=== PATIENT | male | born 1980 | race Caucasian/White ===

== ENCOUNTER 2021-12-19 15:57 | Inpatient (IN) | payer MEDICAID, OTHER ==
[2021-12-19] MEDS ORDERED: DIPH,PERTUS(ACELL)TETVAC-LF 0.5 ML VIAL IM ONE (17:01)
[2021-12-19] MEDS ORDERED: BACITRACIN OINT 1 EACH PACKET TOPICAL ONE (17:01)
--- NOTE | 2021-12-19 17:07 | ED ---
Psych HPI - General Chief Complaint: Psychiatric Symptoms Stated Complaint: suicidal thoughts Time Seen by Provider: 12/19/21 16:39 Source: patient, family (mom), RN notes reviewed, old records reviewed Mode of arrival: ambulatory - History of Present Illness Initial Comments: 41-year-old male, alert and oriented 4, presents to the emergency room with his mother with complaints of increased suicidal ideations, manic episodes and depression. Patient has a history of same and is on medications however he states that his stress at work and having no friends has increased his depression and he has been thinking about overdosing on his medications. Patient states he was last hospitalized for psychiatric illness in 2007. States that his primary care doctor has been managing his antidepressants. He currently lives with his mother. He did punch a wall today, sustaining multiple abrasions to his right hand. He has full range of motion and denies any pain at this time. MD Complaint: suicidal ideation, feels depressed -: year(s) Associated Psychiatric Symptoms: depression, suicidal ideation, racing thoughts History of same: Yes Quality: getting worse Improves With: none Worsens With: none Context: significant life stressor (work stress, no friends) Treatments Prior to Arrival: none If Self Harm: admits thoughts of self harm - Related Data Home Medications Medication Instructions Recorded Confirmed Ferrous Sulfate [Feosol] 325 mg PO DAILY 12/19/21 12/19/21 Glucosamine HCl/Chondroitin Frazier 1 cap PO DAILY 12/19/21 12/19/21 [Glucosamine-Chondroitin Cap] SUMAtriptan succinate [Imitrex] 100 mg PO BID PRN 12/19/21 12/19/21 Ubrogepant [Ubrelvy] 100 mg PO DAILY PRN 12/19/21 12/19/21 Venlafaxine HCl ER [Effexor Xr] 150 mg PO DAILY 12/19/21 12/19/21 Allergies Allergy/AdvReac Type Severity Reaction Status Date / Time No Known Allergies Allergy Verified 12/19/21 18:04 Review of Systems ROS Statement: Those systems with pertinent positive or pertinent negative responses have been documented in the HPI. ROS Other: All systems not noted in ROS Statement are negative. Past Medical History Past Medical History: Asthma Additional Past Medical History / Comment(s): migraine History of Any Multi-Drug Resistant Organisms: None Reported Past Surgical History: Orthopedic Surgery Past Psychological History: Anxiety, Bipolar, Depression, Panic Disorder Smoking Status: Former smoker Past Alcohol Use History: None Reported Past Drug Use History: Marijuana General Exam Limitations: no limitations General appearance: alert, in no apparent distress Head exam: Present: atraumatic, normocephalic, other (scar mid forehead from old injury) Eye exam: Present: normal appearance. Absent: scleral icterus, conjunctival injection, periorbital swelling, periorbital tenderness ENT exam: Present: normal exam, normal oropharynx, mucous membranes moist Neck exam: Present: normal inspection, full ROM. Absent: tenderness, meningismus, lymphadenopathy, thyromegaly Respiratory exam: Present: normal lung sounds bilaterally. Absent: respiratory distress, wheezes, rales, rhonchi, stridor, chest wall tenderness, accessory muscle use Cardiovascular Exam: Present: tachycardia GI/Abdominal exam: Present: soft. Absent: distended, tenderness, guarding, rebound, rigid Extremities exam: Present: normal capillary refill. Absent: pedal edema Right Hand Wrist exam: Present: full ROM, abrasion (Knuckles of right hand). Absent: tenderness, swelling, ecchymosis, deformity Neuro motor exam: Present: wrist extension intact Neurosensory exam: Present: radial nerve intact, ulnar nerve intact, median nerve intact Vascular: Present: normal capillary refill. Absent: vascular compromise Back exam: Present: normal inspection. Absent: tenderness, CVA tenderness (R), CVA tenderness (L) Neurological exam: Present: alert, oriented X3 Psychiatric exam: Present: depressed, suicidal ideation. Absent: agitated, flat affect Skin exam: Present: warm, dry. Absent: cyanosis, diaphoretic, petechiae, pallor Course Vital Signs 12/19/21 12/19/21 12/19/21 16:11 17:48 18:09 Temperature 98.4 F Pulse Rate 124 H 106 H 97 Respiratory 20 18 Rate Blood Pressure 122/87 O2 Sat by Pulse 100 99 Oximetry Medical Decision Making - Medical Decision Making Patient presents with suicidal ideations with a plan to overdose on his medications. He does admit to smoking marijuana and taking Kratom. Denies any other drug use or alcohol use. BAT negative. Urine drug screen positive for marijuana. He did punch a wall today out of anger. X-ray of the hand is negative. Abrasions were dressed with bacitracin dressings. Patient did speak with EPS nurse Roselia and is agreeable to being admitted for psychiatric care. - Lab Data Lab Results 12/19/21 Range/Units 17:46 Urine Opiates Screen Not Detected (NotDetected) Ur Oxycodone Screen Not Detected (NotDetected) Urine Methadone Screen Not Detected (NotDetected) Ur Propoxyphene Screen Not Detected (NotDetected) Ur Barbiturates Screen Not Detected (NotDetected) U Tricyclic Antidepress Not Detected (NotDetected) Ur Phencyclidine Scrn Not Detected (NotDetected) Ur Amphetamines Screen Not Detected (NotDetected) U Methamphetamines Scrn Not Detected (NotDetected) U Benzodiazepines Scrn Not Detected (NotDetected) Urine Cocaine Screen Not Detected (NotDetected) U Marijuana (THC) Screen Detected H (NotDetected) Disposition Clinical Impression: Depression, Suicidal ideation Disposition: ADMITTED IP TO THIS [facility] Referrals: Mikhail Jefferson DO [Primary Care Provider] - 1-2 days Decision Date: 12/19/21 Decision Time: 22:00
--- NOTE | 2021-12-19 17:41 | XR ---
EXAMINATION TYPE: XR hand complete RT DATE OF EXAM: 12/19/2021 COMPARISON: NONE HISTORY: Punched a wall. Pain TECHNIQUE: 3 views FINDINGS: The metacarpals are intact. Fingers are intact. There is soft tissue swelling on the dorsum of the hand. Carpal bones are intact. No fracture seen. IMPRESSION: Soft tissue swelling. No fracture seen.
[2021-12-19 18:03] LABS: Amphetamine Screen,Urine Not Detected (NotDetected); Barbiturate Screen,Urine Not Detected (NotDetected); Benzodiazepines Screen,Urine Not Detected (NotDetected); Cocaine Screen,Urine Not Detected (NotDetected); Methadone Screen, Urine Not Detected (NotDetected); Opiate Screen,Urine Not Detected (NotDetected); Oxycodone Screen, Urine Not Detected (NotDetected); Phencyclidine Screen,Urine Not Detected (NotDetected); Tricyclic Antidepressant,Urine Not Detected (NotDetected); Urn Cannabinoid Scrn Detected (NotDetected)
[2021-12-19 23:43] LABS: Basophils # (A) 0.1 k/uL (0-0.2); Basophils % (A) 1 %; Eosinophils # (A) 0.4 k/uL (0-0.7); Eosinophils % (A) 4 %; HCT 47.5 % (39.0-53.0); Lymphocytes # (A) 2.6 k/uL (1.0-4.8); Lymphocytes % (A) 27 %; MCH 30.6 pg (25.0-35.0); MCHC 33.8 g/dL (31.0-37.0); MCV 90.5 fL (80.0-100.0); Mean Platelet Volume 7.6; Monocytes # (A) 0.6 k/uL (0-1.0); Monocytes % (A) 6 %; Neutrophils % (A) 61 %; Platelet Count 272 k/uL (150-450); RBC 5.25 m/uL (4.30-5.90); RDW 12.2 % (11.5-15.5); WBC 9.8 k/uL (3.8-10.6)
[2021-12-19 23:58] LABS: ALT 44 U/L (4-49); AST 39 U/L (17-59); African American GFR (CKD) >90 (>60 ml/min/1.73 sqM); Albumin 4.9 g/dL (3.5-5.0); Alkaline Phosphatase 87 U/L (38-126); Anion Gap 16 mmol/L; Blood Urea Nitrogen 16 mg/dL (9-20); Calcium 9.8 mg/dL (8.4-10.2); Carbon Dioxide 20 mmol/L (22-30); Chloride 103 mmol/L (98-107); Glucose 92 mg/dL (74-99); Non-African American GFR(CKD) >90 (>60 ml/min/1.73 sqM); Sodium 139 mmol/L (137-145); Total Bilirubin 0.5 mg/dL (0.2-1.3); Total Protein 7.6 g/dL (6.3-8.2)
[2021-12-20 00:13] LABS: Amorphous Sediment,Urine Few /hpf; Appearance,Urine Turbid (Clear); Bacteria,Urine Few /hpf; Bilirubin,Urine Negative (Negative); Blood,Urine Negative (Negative); Calcium Oxalate Crystals,Urine Moderate /hpf; Color,Urine Yellow; Glucose,Urine (UA) Negative (Negative); Ketones,Urine 2+ (Negative); Leukocyte Esterase,Urine Negative (Negative); Mucus,Urine Many /hpf; Nitrite,Urine Negative (Negative); Protein,Urine 1+ (Negative); Specific Gravity,Urine 1.031 (1.001-1.035); WBC,Urine 1 /hpf (0-5)
[2021-12-20] MEDS ORDERED: ACETAMINOPHEN TAB 325 MG TAB PO PRN (00:34)
[2021-12-20] MEDS ORDERED: MAGNESIUM HYDROXIDE 2,400 MG/10 ML CUP PO PRN (00:34)
[2021-12-20] MEDS ORDERED: HALOPERIDOL LACTATE 5 MG/ML 1 ML VIAL IM PRN (00:34)
[2021-12-20] MEDS ORDERED: MAG HYDROX/AL HYDROX/SIMETH 30 ML CUP PO PRN (00:34)
[2021-12-20] MEDS ORDERED: LORazepam 1 MG TAB PO PRN (00:34)
[2021-12-20] MEDS ORDERED: LORazepam 2 MG/ML INJ IM PRN (00:37)
[2021-12-20] MEDS ORDERED: haloperidoL 5 MG TAB PO PRN (00:38)
[2021-12-20] MEDS ORDERED: NICOTINE 14MG/24HR PATCH TRANSDERM SCH (09:00)
--- NOTE | 2021-12-20 11:13 | P.HP ---
Psychiatric H&P - . H&P Date: 12/20/21 History & Physical: IDENTIFYING DATA: Segundo is an odd 41-year-old single male admitted for psychiatric unit voluntarily with complaints of suicidal ideation, self-harm and "manic behavior." HISTORY OF PRESENT ILLNESS: Mother brought him in hospital and complained that he was "manic" and punched the wall and banging his head resulting in abrasions to his medical and to his head. He perseverated on having manic and depressive episodes and complained that he is had a manic episode for 2 days. His description of a "manic episode" was not consistent with true lisa. He talked about staying in his room, playing music loud and "angry" and frustrated. She did not describe and episodes of increased energy and activity. He had grandiosity, decreased need for sleep, talkativeness, flight of ideas, distractibility or increase in goal-directed activities. His anger and frustration appeared to have developed following 2 encounters with his father. His parents have been for many years and recently. He lives with his mother, his brother and nephew. His father lives in [place] with his girlfriend. On the day of admission he was working with for his [id number]. His father came over to take his mother and family to eat. Segundo talked about his father getting him a "scornful" look and he became increasingly angry and frustrated. After driving home he felt he had no way to express his frustration and began punching the wall and banging his head. He described periods of depression and suicidal ideation. In the ED he gave the nurse a document that was titled Segundo Resendez's last will and testament. He decreased his belongings to his family and at the end of document wrote "but I forgive each other and be reunited in heaven." In the document he made grandiose statements of his artistic kinesthetic ability. Document also suggested that he was preoccupied with pornography. He described use of marijuana and Kraton but denied use for the drugs to get high, help her sleep or changes mood. His UDS was positive only for marijuana. PAST PSYCHIATRIC HISTORY: This is his second or third admission to the psychiatric unit. He estimates that he has been admitted for "4 or 5 times" to inpatient psychiatric units. He first received mental health treatment when he was 15 years old as result of behavioral and contact problems at school. He was admitted to [facility] when he was 16 years old. He was expelled from school in 11th grade for writing threats of violence on the school and was subsequently admitted to a psychiatric facility. This is his second admission to our psychiatric unit. He was last admitted in 2007 under the care of Dr. Davey for suspiciousness, irritability, behavioral withdrawal and depression following increasing conflict with his father. His discharge diagnosis was major depressive disorder with psychotic features and alcohol abuse. He is referred to professional counseling Center for continued outpatient treatment. He has been active with community mental health in the past but is not receiving mental health services recently. His primary care provider prescribes Wellbutrin for the treatment of depression. PAST MEDICAL HISTORY: Asthma ALLERGIES: NO KNOWN DRUG ALLERGIES SUBSTANCE USE HISTORY: History of alcohol use problems, cannabis use and recently Kraton. He has never been any substance abuse treatment program FAMILY PSYCHIATRIC/SUBSTANCE USE HISTORY: He alleges that his father has alcohol use problem. He lives with his mother, a brother who has schizophrenia and nephew who is autistic. His mother has history of depression. LEGAL HISTORY: Denied SOCIAL HISTORY: He is single and has no children. He lives with his mother, his brother and nephew. His parents when he was 17. He is lived with his father the past. He was in special education. His expelled from school in 11th grade but received a GED. He works intermittently for his family [employer] and working for his brother's [employer] company. He spends his time alone and has no friends and is not engaged in community activities. MENTAL STATUS EXAM: He presented as a casually groomed 41-year-old male who was pleasant on approach. He made eye contact and attended to the interview. He had abrasions on the knuckles of both hands. He also had abrasion at the apex of his head. He had no prominent physical abnormalities. He had a blunted but bright facial expression. He was alert and oriented to person, place and time. He showed no abnormality of psychomotor activity. His gait was slow but steady. His speech was spontaneous, slightly dysarthric with normal rate, rhythm and volume. His affect was dysphoric with a mixture of irritability, anger and depression. He expressed vague suicidal ideation without plan or intent. He denied homicidal ideation. He expressed feelings of hopelessness and helplessness. He obsessed over his relationship with his father, his self diagnosed episodes of lisa, his lack of friends and frustrations with life. He persistently commented that he does not feel like he "fits him." He did not express clear ideas reference, paranoid ideation or delusions. His thinking was very concrete but logical and goal directed. He did not express clang associations or neologisms. He denied hallucinations and did not appear to be responding to internal stimuli. He did not express de personalization, derealization or reexperiencing phenomenon. Global impression of intellect is below average. He is aware of his illness and need for treatment. STRENGTHS: Stable housing, supportive family, good physical health, engagement with mental health services WEAKNESSES: Substance use, poor problem-solving skills, poor socialization skills, withdrawal from mental health services IMPRESSION: He is a single 41-year-old male who has a history of developmental disability and recurrent behavioral problems beginning in adolescence. He presented to the psychiatric unit voluntarily with increasing anger, aggressive behavior, self-harm and suicidal ideation. The change in his behavior appeared to have been triggered by any perceived rejection by his father with whom he has an ambivalent relationship. He described suicidal ideation and gave nursing a hand written will. She be treated inpatient basis with combination of psychopharmacology and multimodal therapy. PRINCIPLE DIAGNOSIS: Suicidal ideation, Unspecified mood disorder, rule out major depressive disorder, rule out dysthymic disorder, rule out intermittent explosive disorder, cannabis use disorder, history of alcohol use disorder, other substance use disorder (Kraton), developmental disorder RECOMMENDATION: Admitted to the psychiatric unit. Safety precautions. Consult medicine for initial physical exam and medical history. Restart Abilify 1 mg daily and titrated according to clinical response and tolerance. Ativan and/or Haldol when necessary for anxiety, agitation acute psychosis. Obtain collateral information from family. benzene worker to coordinate discharge and aftercare services. Evaluate clinical status response to treatment daily basis. Allergies Allergy/AdvReac Type Severity Reaction Status Date / Time No Known Allergies Allergy Verified 12/20/21 00:40 Vital Signs Temp 97.1 F L 12/20/21 01:24 Pulse 83 12/20/21 01:24 Resp 15 12/20/21 01:24 BP 137/87 12/20/21 01:24 Pulse Ox 98 12/20/21 01:24 FiO2 Intake & Output 12/19/21 12/20/21 12/20/21 18:59 06:59 18:59 Weight 88.451 kg 86.409 kg Laboratory Last Values WBC 9.8 k/uL (3.8-10.6) 12/19/21 23:25 RBC 5.25 m/uL (4.30-5.90) 12/19/21 23:25 Hgb 16.0 gm/dL (13.0-17.5) 12/19/21 23:25 Hct 47.5 % (39.0-53.0) 12/19/21 23:25 MCV 90.5 fL (80.0-100.0) 12/19/21 23: MCH 30.6 pg (25.0-35.0) 12/19/21 23:25 MCHC 33.8 g/dL (31.0-37.0) 12/19/21 23:25 RDW 12.2 % (11.5-15.5) 12/19/21 23:25 Plt Count 272 k/uL (150-450) 12/19/21 23:25 MPV 7.6 12/19/21 23:25 Neutrophils % 61 % 12/19/21 23:25 Lymphocytes % 27 % 12/19/21 23:25 Monocytes % 6 % 12/19/21 23:25 Eosinophils % 4 % 12/19/21 23:25 Basophils % 1 % 12/19/21 23:25 Neutrophils # 6.0 k/uL (1.3-7.7) 12/19/21 23:25 Lymphocytes # 2.6 k/uL (1.0-4.8) 12/19/21 23:25 Monocytes # 0.6 k/uL (0-1.0) 12/19/21 23:25 Eosinophils # 0.4 k/uL (0-0.7) 12/19/21 23: Basophils # 0.1 k/uL (0-0.2) 12/19/21 23:25 Sodium 139 mmol/L (137-145) 12/19/21 23:25 Potassium 4.0 mmol/L (3.5-5.1) 12/19/21 23:25 Chloride 103 mmol/L (98-107) 12/19/21 23:25 Carbon Dioxide 20 mmol/L (22-30) L 12/19/21 23:25 Anion Gap 16 mmol/L 12/19/21 23:25 BUN 16 mg/dL (9-20) 12/19/21 23:25 Creatinine 1.04 mg/dL (0.66-1.25) 12/19/21 23:25 Est GFR (CKD-EPI)AfAm >90 (>60 ml/min/1.73 sqM) 12/19/21 23:25 Est GFR (CKD-EPI)NonAf >90 (>60 ml/min/1.73 sqM) 12/19/21 23:25 Glucose 92 mg/dL (74-99) 12/19/21 23:25 Calcium 9.8 mg/dL (8.4-10.2) 12/19/21 23:25 Total Bilirubin 0.5 mg/dL (0.2-1.3) 12/19/21 23:25 AST 39 U/L (17-59) 12/19/21 23:25 ALT 44 U/L (4-49) 12/19/21 23:25 Alkaline Phosphatase 87 U/L (38-126) 12/19/21 23:25 Total Protein 7.6 g/dL (6.3-8.2) 12/19/21 23:25 Albumin 4.9 g/dL (3.5-5.0) 12/19/21 23:25 Urine Color Yellow 12/19/21 17:43 Urine Appearance Turbid (Clear) 12/19/21 17:43 Urine pH 6.0 (5.0-8.0) 12/19/21 17:43 Ur Specific [place] 1.031 (1.001-1.035) 12/19/21 17:43 Urine Protein 1+ (Negative) H 12/19/21 17:43 Urine Glucose (UA) Negative (Negative) 12/19/21 17:43 Urine Ketones 2+ (Negative) H 12/19/21 17:43 Urine Blood Negative (Negative) 12/19/21 17:43 Urine Nitrite Negative (Negative) 12/19/21 17:43 Urine Bilirubin Negative (Negative) 12/19/21 17:43 Urine Urobilinogen 2.0 mg/dL (<2.0) 12/19/21 17:43 Ur Leukocyte Esterase Negative (Negative) 12/19/21 17:43 Urine WBC 1 /hpf (0-5) 12/19/21 17:43 Calcium Oxalate Crystal Moderate /hpf (None) H 12/19/21 17:43 Amorphous Sediment Few /hpf (None) H 12/19/21 17:43 Urine Bacteria Few /hpf (None) H 12/19/21 17:43 Urine Mucus Many /hpf (None) H 12/19/21 17:43 Urine Opiates Screen Not Detected (NotDetected) 12/19/21 17:46 Ur Oxycodone Screen Not Detected (NotDetected) 12/19/21 17:46 Urine Methadone Screen Not Detected (NotDetected) 12/19/21 17:46 Ur Propoxyphene Screen Not Detected (NotDetected) 12/19/21 17:46 Ur Barbiturates Screen Not Detected (NotDetected) 12/19/21 17:46 U Tricyclic Antidepress Not Detected (NotDetected) 12/19/21 17:46 Ur Phencyclidine Scrn Not Detected (NotDetected) 12/19/21 17:46 Ur Amphetamines Screen Not Detected (NotDetected) 12/19/21 17:46 U Methamphetamines Scrn Not Detected (NotDetected) 12/19/21 17:46 U Benzodiazepines Scrn Not Detected (NotDetected) 12/19/21 17:46 Urine Cocaine Screen Not Detected (NotDetected) 12/19/21 17:46 U Marijuana (THC) Screen Detected (NotDetected) H 12/19/21 17:46 Coronavirus (PCR) Not Detected (Not Detectd) 12/19/21 23:25 12/20/21 10:41
[2021-12-20] MEDS: ARIPiprazole 2 MG TAB PO SCH (12:09)
[2021-12-20] MEDS: VENLAFAXINE HCL ER 150 MG CAP PO SCH (12:12)
--- NOTE | 2021-12-20 14:54 | P.HPIM ---
History of Present Illness H&P Date: 12/20/21 Patient is a 41-year-old male with PMH of asthma, migraines that presents to the ED for suicidal ideation. He has been admitted to mental health unit for further management of his symptoms. [facility] physicians has been consulted for medical management of this patient. Patient reports punching a wall with his right fist. He reports abrasions over his right hand. He reports full range of motion. He reports getting a tetanus shot in the ED. Otherwise, he has no complaints. He denies any headache, lower erlin edema, nausea or vomiting, fever or chills, cough, chest pain, shortness of breath, palpitations, changes in urination or bowel habits. No changes in appetite or weight. He denies any dizziness, numbness/weakness/tingling of extremities. His vital signs are currently within normal limits. He was initially tachycardic when he came to the ED. General: [non toxic], [no distress], [appears at stated age] Derm: [warm], [dry] Head: [atraumatic], [normocephalic], [symmetric] Eyes: [EOMI], [no lid lag], [anicteric sclera] Mouth: [no lip lesion], [mucus membranes moist] Cardiovascular: [S1S2 reg], [no murmur], [positive posterior tibial pulse bilateral], Lungs: [CTA bilateral], [no rhonchi, no rales] , [no accessory muscle use] Abdominal: [soft], [ nontender to palpation], [no guarding], [no appreciable organomegaly] Ext: [no gross muscle atrophy], [abrasions over the right hand with soft tissue swelling, full range of motion], [no contractures] Neuro: [ CN II-XI grossly intact], [no focal neuro deficits] Psych: [Alert], [oriented], [appropriate affect] #Right hand abrasion #Abnormal urinalysis #Marijuana use #Former smoker Patient has been encouraged right hand elevation for his swelling. Patient has been encouraged to wash his hands regularly with soap. Bacitracin will be ordered for application to the abrasions. Urinalysis negative for leukocyte esterase or nitrite. 1+ protein, 2+ ketones with moderate calcium oxalate crystals. Patient encouraged hydration by mouth. Patient advised to quit illicit substances. Nicotine patch has been offered. Past Medical History Past Medical History: Asthma Additional Past Medical History / Comment(s): migraine History of Any Multi-Drug Resistant Organisms: None Reported Past Surgical History: Orthopedic Surgery Smoking Status: Former smoker Medications and Allergies Home Medications Medication Instructions Recorded Confirmed Type Ferrous Sulfate [Feosol] 325 mg PO DAILY 12/19/21 12/20/21 History Glucosamine HCl/Chondroitin Frazier 1 cap PO DAILY 12/19/21 12/20/21 History [Glucosamine-Chondroitin Cap] SUMAtriptan succinate [Imitrex] 100 mg PO BID PRN 12/19/21 12/20/21 History Venlafaxine HCl ER [Effexor Xr] 150 mg PO DAILY 12/19/21 12/20/21 History Allergies Allergy/AdvReac Type Severity Reaction Status Date / Time No Known Allergies Allergy Verified 12/20/21 00:40 Physical Exam Vitals: Vital Signs Temp Pulse Pulse Resp BP BP Pulse Ox 12/20/21 01:24 97.1 F L 83 15 137/87 98 12/19/21 22:10 98.4 F 66 14 134/98 98 12/19/21 18:09 97 12/19/21 17:48 106 H 18 99 12/19/21 16:11 98.4 F 124 H 20 122/87 100 Intake and Output 12/19/21 12/20/21 12/20/21 22:59 06:59 14:59 Other: Weight 88.451 kg 86.409 kg Results CBC & Chem 7: 12/19/21 23:25 12/19/21 23:25 Labs: Abnormal Lab Results - Last 24 Hours (Table) 12/19/21 12/19/21 12/19/21 Range/Units 17:43 17:46 23:25 Carbon Dioxide 20 L (22-30) mmol/L Urine Protein 1+ H (Negative) Urine Ketones 2+ H (Negative) Calcium Oxalate Crystal Moderate H (None) /hpf Amorphous Sediment Few H (None) /hpf Urine Bacteria Few H (None) /hpf Urine Mucus Many H (None) /hpf U Marijuana (THC) Screen Detected H (NotDetected)
[2021-12-20] MEDS ORDERED: ALBUTEROL HFA INHALER INHALATION PRN (14:55)
[2021-12-20] MEDS ORDERED: SUMAtriptan succinate 50 MG TAB PO PRN (14:55)
[2021-12-20] MEDS: BACITRACIN OINT 1 EACH PACKET TOPICAL SCH ×2 (19:03→22:28)
[2021-12-21 07:52] LABS: ALT 38 U/L (4-49); AST 30 U/L (17-59); Albumin 4.9 g/dL (3.5-5.0); Alkaline Phosphatase 94 U/L (38-126); Bilirubin, Delta 0.1 mg/dL (0.0-0.2); Bilirubin,Unconjugated 0.4 mg/dL (0.0-1.1); Total Bilirubin 0.5 mg/dL (0.2-1.3); Total Protein 7.7 g/dL (6.3-8.2)
[2021-12-21] MEDS: ARIPiprazole 2 MG TAB PO SCH (09:56)
[2021-12-21] MEDS: VENLAFAXINE HCL ER 150 MG CAP PO SCH (09:57)
[2021-12-21] MEDS: BACITRACIN OINT 1 EACH PACKET TOPICAL SCH ×4 (09:58→21:11)
--- NOTE | 2021-12-21 11:59 | P.PN ---
Progress Note - Text Progress Note Date: 12/21/21 Clinical Problems: Suicidal ideation, Unspecified mood disorder, rule out major depressive disorder, rule out dysthymic disorder, rule out intermittent explosive disorder, cannabis use disorder, history of alcohol use disorder, other substance use disorder (Kraton), developmental disorder Interim history: I reviewed the medical record and interviewed the patient. Medical consult appreciated. The patient denies current concerns. He denied thoughts of or suicide. He is had no behavioral outbursts since admission to the unit. He attended one therapeutic group yesterday. He spends much of his time alone, and for meals and medications. Mental status exam: He was neatly dressed, pleasant and cooperative. He made eye contact and attended to the interview. He had no abnormality of psychomotor activity. His speech was spontaneous, slow but with normal volume. His affect was blunted, stable and appropriate. He denied suicidal ideation or wishes. He denied homicidal ideation. He did not express feelings of hopelessness, helplessness or worthlessness. He did not express ideas reference, paranoid ideation or delusions. His thinking was concrete but his associations were coherent, logical and goal directed. He denied hallucinations did not appear to responding to internal stimuli. Assessment: His mood has improved over the last 24 hours and he is shown no angry outbursts. Plan: Continue inpatient treatment. Safety precautions. Continue Abilify 1 mg daily and titrated according to clinical response and tolerance. Ativan and/or Haldol when necessary for anxiety, agitation acute psychosis. Obtain collateral information from family. Encourage participation in therapeutic groups and activities. Evaluate clinical status response to treatment daily basis.
[2021-12-21 13:17] LABS: Chol/HDL Ratio 7.79 Ratio
[2021-12-22] MEDS: ARIPiprazole 2 MG TAB PO SCH (09:11)
[2021-12-22] MEDS: VENLAFAXINE HCL ER 150 MG CAP PO SCH (09:11)
[2021-12-22] MEDS: BACITRACIN OINT 1 EACH PACKET TOPICAL SCH ×5 (09:12→20:36)
[2021-12-22] MEDS ORDERED: ARIPiprazole 2 MG TAB PO ONE (10:39)
--- NOTE | 2021-12-22 10:43 | P.PN ---
Progress Note - Text Progress Note Date: 12/22/21 Interval History: Patient was seen wandering the hallways and was directable and agreeable to tony askew with comic book writer in the office. Patient appeared to be fairly calm and directable today during conversation. He was fairly concrete and monotone. He states that he is doing a bit better with the Abilify including that his mood and anxiety been improving. He spoke about his "manic depressive" states that he was in prior to coming into the into the hospital and being admitted. He states that Abilify has helped him in the past stabilize his mood. He did endorse significant manic symptoms in the past including staying up all night and also engaging in risky her behaviors and also thinking that he was "on a TV show". He states that at this time he is feeling a bit calmer and trying to go to groups and participate as best as he can. He was agreeable to have his Abilify increased to 2 mg and requested to have melatonin for sleep as it is helped him in the past. At this time patient denies any suicidal or homical ideations, intent or plan. Patient denies any auditory, visual hallucinations and denies any paranoia or delusions. Patient denies any side effects from the medications and has been compliant with meds. Mental Status Exam: General Appearance: Patient appears to be stated age is, shorter in stature, alert, directable, and cooperative. Behavior: Patient is calmly seated without any agitated behavior. Times to cooperate. Speech: Patient's speech is fluent and nonpressured. monotone and concrete. Mood/Affect: Mood is improving mildly, affect is congruent and constricted. Suicidality/Homicidality: Patient denies having any suicidal or homicidal ideation intent or plan. Perceptions: Patient denies any visual hallucinations and denies any auditory hallucinations Though content/process: There is no evidence of any delusional thought content and thought process is linear and goal-directed. [place]. Memory and concentration: AOX3, grossly intact for the purposes of this session Judgment and insight: Improving mildly Assessment Bipolar disorder, current episode mixed Cannabis use disorder History of alcohol use disorder other substance use disorder (Kratom) Developmental disorder Plan: -Patient continues to meet criteria for inpatient psychiatric admission for symptom stabilization and safety. Patient has signed adult voluntary form and medication consent and was placed in patient's chart. -Medications: Abilify increased to 2 mg daily for mood stabilization. Effexor 150 mg daily for mood/anxiety, melatonin 10 mg daily at bedtime for sleep. -When necessary Ativan and Haldol for agitation/aggression. -NRT - not needed as patient does not smoke -SW on board for discharge planning. Encouraged the patient to participate in milieu.
[2021-12-22] MEDS ORDERED: MELATONIN 5 MG TABLET PO SCH (21:00)
[2021-12-23] MEDS: VENLAFAXINE HCL ER 150 MG CAP PO SCH (08:58)
[2021-12-23] MEDS: BACITRACIN OINT 1 EACH PACKET TOPICAL SCH (08:58)
[2021-12-23] MEDS ORDERED: ARIPiprazole 2 MG TAB PO SCH (09:00)
--- NOTE | 2021-12-23 11:51 | P.DS ---
Providers Date of admission: 12/20/21 00:25 Expected date of discharge: 12/23/21 Attending physician: Erasmo Coronel MD Consults: 12/20/21 00:34 Consult Physician Routine Consulting Provider: Nicolasa Montero Consult Reason/Comments: For H & P for Medical Follow Up Do you want consulting provider notified?: Yes Primary care physician: Mikhail Jefferson - Discharge Diagnosis(es) (1) Bipolar disorder, mixed Current Visit: Yes Status: Acute Priority: High (2) Cannabis use disorder Current Visit: Yes Status: Acute Priority: Medium (3) History of alcohol use Current Visit: Yes Status: Acute Priority: Low (4) Substance use disorder Current Visit: Yes Status: Acute Priority: Medium (5) Developmental delay, borderline Current Visit: Yes Status: Acute Priority: Medium Hospital Course: Admission HPI: Admission note was completed by freelance copywriter "Segundo is an odd 41-year-old single male admitted for psychiatric unit voluntarily with complaints of suicidal ideation, self-harm and "manic behavior." Mother brought him in hospital and complained that he was "manic" and punched the wall and banging his head resulting in abrasions to his medical and to his head. He perseverated on having manic and depressive episodes and complained that he is had a manic episode for 2 days. His description of a "manic episode" was not consistent with true lisa. He talked about staying in his room, playing music loud and "angry" and frustrated. She did not describe and episodes of increased energy and activity. He had grandiosity, decreased need for sleep, talkativeness, flight of ideas, distractibility or increase in goal-directed activities. His anger and frustration appeared to have developed following 2 encounters with his father. His parents have been for many years and recently. He lives with his mother, his brother and nephew. His father lives in [place] with his girlfriend. On the day of admission he was working with for his [id number]. His father came over to take his mother and family to eat. Segundo talked about his father getting him a "scornful" look and he became increasingly angry and frustrated. After driving home he felt he had no way to express his frustration and began punching the wall and banging his head. He described periods of depression and suicidal ideation. In the ED he gave the nurse a document that was titled Segundo Resendez's last will and testament. He decreased his belongings to his family and at the end of document wrote "but I forgive each other and be reunited in heaven." In the document he made grandiose statements of his artistic kinesthetic ability. Document also suggested that he was preoccupied with pornography. He described use of marijuana and Kraton but denied use for the drugs to get high, help her sleep or changes mood. His UDS was positive only for marijuana." Hospital course: Upon admission to the unit patient was directable and agreeable to commence treatment and signed adult voluntary form. Patient got along well with other patients on the unit and followed unit protocol. Patient was compliant with the medications and denied any side effects throughout hospital course. Patient was started on Abilify 2 mg daily for mood stabilization, Effexor 150 mg daily for mood/anxiety, melatonin 10 mg daily at bedtime for sleep. Patient spoke of his stressors and engaged in therapy both group and individual. Patient was also seen by medical team for history and physical exam. Throughout the course of the hospitalization patient gradually improved with regards to mood, anxiety, sleep and became more future oriented with improved insight and judgment. On the day of discharge patient denied any suicidal or homicidal ideations intent or plan denied any auditory or visual hallucinations. Patient endorsed wanting to live for his health and family. The patient denied any access to guns or weapons. Patient denied any paranoia and did not endorse any delusions. Patient does have a significant history of substance abuse and was counseled on abstaining from all substances including alcohol and marijuana. Patient elected to do outpatient substance use treatment program through [facility]. Patient was also counseled on the medications and need for regular compliance and was encouraged to follow-up with their outpatient appointment for mental health and also for primary care. Prior to discharge a family meeting will be arranged by manager social services to answer any questions and ensure safety upon discharge. Mental status exam: General Appearance: Patient appears to be short in stature, wearing glasses, stated age is alert, pleasant, and cooperative. Patient is in no acute distress and has improved hygiene and grooming Behavior: Patient is calmly seated without any agitated behavior. Speech: Patient's speech is fluent and nonpressured. Mood/Affect: Patient reports their mood is "better", affect is congruent and euthymic. Suicidality/Homicidality: Patient denies having any suicidal or homicidal ideation intent or plan. Perceptions: Patient denies any auditory or visual hallucinations. Though content/process: There is no evidence of any delusional thought content and thought process is linear and goal-directed. more future oriented Memory and concentration: AOX3, grossly intact for the purposes of this session. Can spell "WORLD" backwards correctly. Judgment and insight: improved with guarded prognosis Impression: Bipolar disorder, current episode mixed Cannabis use disorder History of alcohol use disorder Substance use disorder (kratom) Developmental delay, borderline Plan: -Continue with discharge today as patient has improved and stabilized psychiatrically and is not currently an imminent threat to himself and/or others. Patient will remain at chronically elevated risk for harm to self and/or others due to his substance abuse. -Continue medications: Abilify 2 mg daily for mood stabilization, Effexor 150 mg daily for mood/anxiety, melatonin 10 mg daily at bedtime for sleep -Patient was counseled on the need for medication compliance and appropriate follow-up at mental health and also primary care for medical issues. Patient verbalized understanding and agreed. -Social work to arrange for and conduct family meeting to ensure safety upon discharge and answer any questions/concerns. Social work also to arrange for patients follow up appointments with [facility] for psychiatric care along with follow up with primary care provider. -Patient counseled on abstaining from recreational drugs and marijuana and alcohol. Was informed/educated on the adverse effects on their physical and mental health. Patient verbally agreed and understood. -Patient was instructed to return to the hospital or seek immediate medical care if their psychiatric or medical symptoms do worsen or reoccur. Allergies Allergy/AdvReac Type Severity Reaction Status Date / Time No Known Allergies Allergy Verified 12/20/21 00:40 Laboratory Results WBC 9.8 k/uL (3.8-10.6) 12/19/21 23:25 RBC 5.25 m/uL (4.30-5.90) 12/19/21 23:25 Hgb 16.0 gm/dL (13.0-17.5) 12/19/21 23:25 Hct 47.5 % (39.0-53.0) 12/19/21 23:25 MCV 90.5 fL (80.0-100.0) 12/19/21 23:25 MCH 30.6 pg (25.0-35.0) 12/19/21 23: MCHC 33.8 g/dL (31.0-37.0) 12/19/21 23:25 RDW 12.2 % (11.5-15.5) 12/19/21 23:25 Plt Count 272 k/uL (150-450) 12/19/21 23:25 MPV 7.6 12/19/21 23:25 Neutrophils % 61 % 12/19/21 23:25 Lymphocytes % 27 % 12/19/21 23:25 Monocytes % 6 % 12/19/21 23: Eosinophils % 4 % 12/19/21 23: Basophils % 1 % 12/19/21 23:25 Neutrophils # 6.0 k/uL (1.3-7.7) 12/19/21 23:25 Lymphocytes # 2.6 k/uL (1.0-4.8) 12/19/21 23:25 Monocytes # 0.6 k/uL (0-1.0) 12/19/21 23:25 Eosinophils # 0.4 k/uL (0-0.7) 12/19/21 23: Basophils # 0.1 k/uL (0-0.2) 12/19/21 23:25 Sodium 139 mmol/L (137-145) 12/19/21 23:25 Potassium 4.0 mmol/L (3.5-5.1) 12/19/21 23:25 Chloride 103 mmol/L (98-107) 12/19/21 23:25 Carbon Dioxide 20 mmol/L (22-30) L 12/19/21 23:25 Anion Gap 16 mmol/L 12/19/21 23:25 BUN 16 mg/dL (9-20) 12/19/21 23:25 Creatinine 1.04 mg/dL (0.66-1.25) 12/19/21 23:25 Est GFR (CKD-EPI)AfAm >90 (>60 ml/min/1.73 sqM) 12/19/21 23:25 Est GFR (CKD-EPI)NonAf >90 (>60 ml/min/1.73 sqM) 12/19/21 23:25 Glucose 92 mg/dL (74-99) 12/19/21 23:[address] Glu mg/dL 103 12/21/21 06:26 Hemoglobin A1c 5.2 % (0.0-6.0) 12/21/21 06:26 Calcium 9.8 mg/dL (8.4-10.2) 12/19/21 23:25 Total Bilirubin 0.5 mg/dL (0.2-1.3) 12/21/21 06:26 Conjugated Bilirubin 0.0 mg/dL (0.0-0.3) 12/21/21 06:26 Unconjugated Bilirubin 0.4 mg/dL (0.0-1.1) 12/21/21 06:26 Delta Bilirubin 0.1 mg/dL (0.0-0.2) 12/21/21 06:26 AST 30 U/L (17-59) 12/21/21 06:26 ALT 38 U/L (4-49) 12/21/21 06:26 Alkaline Phosphatase 94 U/L (38-126) 12/21/21 06:26 Total Protein 7.7 g/dL (6.3-8.2) 12/21/21 06:26 Albumin 4.9 g/dL (3.5-5.0) 12/21/21 06:26 Triglycerides 197.00 mg/dL (0.00-149.00) H 12/21/21 06:26 Cholesterol 254.00 mg/dL (0.00-200.00) H 12/21/21 06:26 LDL Cholesterol, Calc 182.0 mg/dL (0.0-131.0) H 12/21/21 06:26 VLDL Cholesterol, Calc 39.40 mg/dL (5.00-40.00) 12/21/21 06:26 HDL Cholesterol 32.60 mg/dL (40.00-60.00) L 12/21/21 06:26 Cholesterol/HDL Ratio 7.79 Ratio 12/21/21 06:26 TSH 1.930 mIU/L (0.465-4.680) 12/21/21 06:26 Urine Color Yellow 12/19/21 17:43 Urine Appearance Turbid (Clear) 12/19/21 17:43 Urine pH 6.0 (5.0-8.0) 12/19/21 17:43 Ur Specific [place] 1.031 (1.001-1.035) 12/19/21 17:43 Urine Protein 1+ (Negative) H 12/19/21 17:43 Urine Glucose (UA) Negative (Negative) 12/19/21 17:43 Urine Ketones 2+ (Negative) H 12/19/21 17:43 Urine Blood Negative (Negative) 12/19/21 17:43 Urine Nitrite Negative (Negative) 12/19/21 17:43 Urine Bilirubin Negative (Negative) 12/19/21 17:43 Urine Urobilinogen 2.0 mg/dL (<2.0) 12/19/21 17:43 Ur Leukocyte Esterase Negative (Negative) 12/19/21 17:43 Urine WBC 1 /hpf (0-5) 12/19/21 17:43 Calcium Oxalate Crystal Moderate /hpf (None) H 12/19/21 17:43 Amorphous Sediment Few /hpf (None) H 12/19/21 17:43 Urine Bacteria Few /hpf (None) H 12/19/21 17:43 Urine Mucus Many /hpf (None) H 12/19/21 17:43 Urine Opiates Screen Not Detected (NotDetected) 12/19/21 17:46 Ur Oxycodone Screen Not Detected (NotDetected) 12/19/21 17:46 Urine Methadone Screen Not Detected (NotDetected) 12/19/21 17:46 Ur Propoxyphene Screen Not Detected (NotDetected) 12/19/21 17:46 Ur Barbiturates Screen Not Detected (NotDetected) 12/19/21 17:46 U Tricyclic Antidepress Not Detected (NotDetected) 12/19/21 17:46 Ur Phencyclidine Scrn Not Detected (NotDetected) 12/19/21 17:46 Ur Amphetamines Screen Not Detected (NotDetected) 12/19/21 17:46 U Methamphetamines Scrn Not Detected (NotDetected) 12/19/21 17:46 U Benzodiazepines Scrn Not Detected (NotDetected) 12/19/21 17:46 Urine Cocaine Screen Not Detected (NotDetected) 12/19/21 17:46 U Marijuana (THC) Screen Detected (NotDetected) H 12/19/21 17:46 Coronavirus (PCR) Not Detected (Not Detectd) 12/19/21 23:25 Vital Signs Temp 97.4 F L 12/22/21 09:10 Pulse 98 12/22/21 06:51 Resp 20 12/22/21 09:10 BP 114/73 12/22/21 09:10 Pulse Ox 98 12/21/21 09:00 FiO2 Patient Condition at Discharge: Stable Plan - Discharge Summary New Discharge Prescriptions: New Melatonin 10 mg PO HS 30 Days tab Albuterol Inhaler [Ventolin Hfa Inhaler] 1 puff INHALATION RT-QID PRN each PRN Reason: Shortness Of Breath Or Wheezing ARIPiprazole [Abilify] 2 mg PO DAILY 30 Days tab Continue SUMAtriptan succinate [Imitrex] 100 mg PO BID PRN PRN Reason: Migraine Headache Ferrous Sulfate [Iron (65 MG Elemental)] 325 mg PO DAILY Venlafaxine HCl ER [Effexor XR] 150 mg PO DAILY 30 Days cap Discontinued Glucosamine HCl/Chondroitin [place]ier [Glucosamine-Chondroitin Cap] 1 cap PO DAILY Discharge Medication List Ferrous Sulfate [Iron (65 MG Elemental)] 325 mg PO DAILY 12/19/21 [History] SUMAtriptan succinate [Imitrex] 100 mg PO BID PRN 12/19/21 [History] ARIPiprazole [Abilify] 2 mg PO DAILY 30 Days tab 12/23/21 [Rx] Albuterol Inhaler [Ventolin Hfa Inhaler] 1 puff INHALATION RT-QID PRN each 12/23/21 [Rx] Melatonin 10 mg PO HS 30 Days tab 12/23/21 [Rx] Venlafaxine HCl ER [Effexor XR] 150 mg PO DAILY 30 Days cap 12/23/21 [Rx] Follow up Appointment(s)/Referral(s): [facility] [Outside] - 12/30/21 2:00 pm (with intake) Mikhail Jefferson DO [Primary Care Provider] - 1-2 days Activity/Diet/Wound Care/Special Instructions: Avoid the use of street drugs and alcohol. Take all prescriptions as prescribed. When you are in need of refills on your medications, please contact your medical provider and/or outpatient psychiatrist to have this done. Please go to scheduled outpatient appointment for aftercare treatment. If symptoms return or become worse, call the crisis line at and/or go to the nearest emergency room for evaluation. Discharge Disposition: HOME SELF-CARE
[2021-12-23 15:08] VITALS: BP 124/68; PULSE 89; RESP 16; TEMP 97.7
== END 2021-12-23 12:30 | disposition home or self-care (01) | DRG 885 ==
LOC: EC 15:57 → 3MHU 12-20 00:25
PROVIDERS: ADMIT Psychiatry & Neurology Psychiatry; ATTEND Psychiatry & Neurology Psychiatry
DX: F31.60 Bipolar disorder, current episode mixed, unspecified (principal); R45.851 Suicidal ideations; F12.10 Cannabis abuse, uncomplicated; F81.9 Developmental disorder of scholastic skills, unspecified; G43.909 Migraine, unspecified, not intractable, without status migrainosus; R00.0 Tachycardia, unspecified; F41.0 Panic disorder [episodic paroxysmal anxiety]; J45.909 Unspecified asthma, uncomplicated; S60.511A Abrasion of right hand, initial encounter; W22.01XA Walked into wall, initial encounter; Z79.899 Other long term (current) drug therapy; Z87.891 Personal history of nicotine dependence
CPT/HCPCS: 36415; 80053; 80061; 80076; 80306; 81001; 82075; 83036; 84443; 85025; 87635; 90471; 90715; 99285